=== PATIENT | female | born 1955 | race Caucasian/White ===

== ENCOUNTER 2018-08-17 06:50 | Day surgery (SDC) | payer BC ==
[2018-08-17] MEDS ORDERED: LIDOCAINE 2% (SDV) 5 ML INJ (09:39)
[2018-08-17] MEDS ORDERED: PROPOFOL 40 ML (09:39)
[2018-08-17] MEDS ORDERED: morphine (1 MG/ML) 10ML SYRINGE IV (10:00)
== END 2018-08-17 10:59 | disposition home or self-care (01) ==
LOC: GIL 06:50
DX: K29.50 Unspecified chronic gastritis without bleeding (principal); D12.6 Benign neoplasm of colon, unspecified; K21.9 Gastro-esophageal reflux disease without esophagitis; E11.9 Type 2 diabetes mellitus without complications; I10 Essential (primary) hypertension; Z79.84 Long term (current) use of oral hypoglycemic drugs
CPT/HCPCS: 43239; 82962; 88305; 88312